=== PATIENT | female | born 1940 | race Caucasian/White ===

== ENCOUNTER → 2018-03-24 12:31 | Outpatient (CLI) | payer MEDICARE, SELFPAY | PROVIDERS: Visit Provider Student in an Organized Health Care Education/Training Program | DX: M85.851 Other specified disorders of bone density and structure, right thigh (principal); E07.9 Disorder of thyroid, unspecified; Z78.0 Asymptomatic menopausal state | CPT/HCPCS: 77080 ==

== ENCOUNTER 2018-07-23 02:06 | Emergency (ER) | payer MEDICARE, OTHER, SELFPAY ==
[2018-07-23 02:15] VITALS: BP 147/96; PULSE 76; RESP 14; TEMP 36.3; O2SAT 97
--- NOTE | 2018-07-23 02:16 | ED.RECABL ---
HPI - Recheck/Abnormal Lab/Rx General Chief Complaint: Recheck/Abnormal Lab/Rx Stated Complaint: dr yuan sent, calcium is low Time Seen by Provider: 07/23/18 02:12 Source: patient and other (Dr. Yuan) Limitations: no limitations History of Present Illness HPI narrative: 78 year old female sent for lab abnormalities. Patient was seen 07/21 but results were called to Dr. Yuan early this morning 07/23. Calcium level of 3.[address] Yuan. Patient was seen in the office for fatigue and sciatica pain. Results were done through [facility] and are not available to us at this time. Patient states that size ET she has been having a lot of other symptoms. She related this to use any weeks at the beginning of the month caregiving for another individual and not getting very much sleep, she also was having a flare of her IBS and is having some diarrhea elects improving. She was not having an excessive amount of frequency is stool. She has not been have any tremors or fasciculations or muscle twitches. She denies any chest pain or shortness of breath. She denies any nausea or vomiting. No new urinary symptoms. She has not had any new medications other than atorvastatin started in the last couple weeks she states that she was told she had low calcium many years ago when she had a bone biopsy. Related Data Home Medications Medication Instructions Recorded Confirmed atorvastatin [Lipitor] 20 mg PO HS #0 02/05/18 levothyroxine 88 mcg PO Q DAY #0 02/05/18 Previous Rx's Medication Instructions Recorded estradiol 0.01% (0.1 mg/gram) 1 gram VAG 2XW #42.5 gram 05/20/18 vaginal cream Allergies Allergy/AdvReac Type Severity Reaction Status Date / Time No Known Drug Allergies Allergy Verified 07/23/18 02:16 Review of Systems Review of Systems All systems reviewed & are unremarkable except as noted in HPI and below Constitutional Reports fatigue Cardiovascular Denies chest pain and Denies dyspnea Respiratory Denies cough and Denies dyspnea Gastrointestinal Gastrointestinal: Denies abdominal pain, Reports diarrhea, Denies nausea and Denies vomiting Musculoskeletal Denies myalgias, Denies muscle cramps, Denies muscle weakness, Denies numbness, Denies tingling and Denies other (Tremors, fasciculations) Neurologic Denies abnormal movements, Denies numbness, Denies restless legs and Denies tingling Endocrine Reports fatigue Exam Narrative Exam Narrative: GENERAL: Alert and oriented x three, well-nourished, well-appearing thin female in no acute distress. HEENT: Head normocephalic, atraumatic, EOMI, pupils reactive, face symmetric, moist mucous membranes NECK: Supple, full range of motion CARDIOVASCULAR: Regular rate and rhythm without murmurs, rubs or gallops. RESPIRATORY: Breath sounds equal bilaterally, no wheezes rales or rhonchi. ABDOMEN: Soft, nontender. Normoactive bowel sounds all 4 quadrants. No guarding or rebound, rigidity, no mass : No CVA tenderness EXTREMITIES: Normal range of motion, no clubbing or edema. 5 in 5 muscle strength in bilateral upper and lower extremities. Neurovascularly intact NEUROLOGICAL: Cranial nerves II through XII grossly intact. Moving all extremities. No tremor noted. No muscle fasciculations. No clonus. SKIN: Warm, dry, no petechiae, no rashes or lesions. Initial Vital Signs Initial Vital Signs: Vital Signs Temperature 97.4 F L 07/23/18 02:15 Pulse Rate 76 07/23/18 02:15 Respiratory Rate 14 07/23/18 02:15 Blood Pressure 147/96 H 07/23/18 02:15 Pulse Oximetry 97 07/23/18 02:15 Course Orders Ordered: ED Orders 07/23/18 02:13 EKG-12 Lead Stat 07/23/18 02:18 Complete Blood Count AUTO DIFF Stat Comprehensive Metabolic Panel Stat Magnesium Stat Phosphorous Stat Thyroid Stimulating Hormone Stat Vital Signs - 8 hr 07/23/18 02:15 Temperature 97.4 F L Pulse Rate 76 Respiratory Rate 14 Blood Pressure 147/96 H Pulse Oximetry 97 [facility] - Recheck/Abnormal Lab/Rx Medical Records Attestation: I reviewed the patient's medical records. Records were sent from patient's last office visit by Dr. Yuan. Lab Data Result diagrams: 07/23/18 02:18 07/23/18 02:18 Lab Results 07/23/18 07/23/18 07/23/18 Range/Units 02:18 02:18 02:18 WBC 4.1 L (4.5-11.0) X10^3/uL RBC 4.62 (4.0-5.2) X10^6/uL Hgb 14.7 (12.0-16.0) g/dL Hct 42.6 (36-46) % MCV 92.3 (80-100) fL MCH 31.8 (26-34) PG MCHC 34.5 (30-36) % RDW 12.3 (11.6-14.8) % Plt Count 239 (150-400) X10^3/uL Neut % (Auto) Not Reportable Lymph % (Auto) Not Reportable [place] % (Auto) Not Reportable Eos % (Auto) Not Reportable Baso % (Auto) Not Reportable Seg Neutrophils % 30.0 L (38-70) % Band Neutrophils % 2.0 L (3-7) % Lymphocytes % (Manual) 42.0 (25-45) % Atypical Lymphs % 13.0 H ( - 0) % Monocytes % (Manual) 8.0 (2-11) % Eosinophils % (Manual) 3.0 (2-4) % Basophils % (Manual) 2.0 H (0-1) % RBC Morphology Normal morphology Sodium 138 (137-145) mmol/L Potassium 4.0 (3.4-5.1) mmol/L Chloride 102 (98-107) mmol/L Carbon Dioxide 27 (22-32) mmol/L BUN 18 H (7-17) mg/dL Creatinine 0.80 (0.52-1.04) mg/dL Estimated GFR > 60.0 (>60) mL/min BUN/Creatinine Ratio 22.5 H (6-22) Glucose 89 (80-110) mg/dL Calcium 9.4 (8.4-10.2) mg/dL Phosphorus 4.0 (2.8-4.1) mg/dL Magnesium 2.2 (1.6-2.3) mg/dL Total Bilirubin 0.3 (0.2-1.3) mg/dL AST 32 (14-36) IU/L ALT 28 (9-52) IU/L Alkaline Phosphatase 75 (38-126) U/L Total Protein 7.7 (6.3-8.2) g/dL Albumin 4.5 (3.5-5.0) g/dL Globulin 3.2 (1.7-4.1) g/dL Albumin/Globulin Ratio 1.4 (1.0-2.8) TSH 7.19 H (0.47-4.68) uIU/mL ECG Data Attestation: I personally reviewed and interpreted this ECG as follows: Interpretation: Sinus rhythm with a rate of 65, P are 178, [place] 105 and QTC of 437. Non specific ST change. MDM Narrative Medical decision making narrative: Labs for recheck him calcium is not low. I did repeat her CBC and TSH as well as there was potential that this may have been another patient's lab work verses just the lab air. After discussion patient did state that when they were drawing her blood eye was quite difficult for them to get blood and the blood was flowing very slowly into the tube so they had to use multiple tubes to try to get enough. Patient was given a copy of her lab work all of her TSH was still pending and she has phone follow-up set up with her provider. Discharge Plan Departure Patient Disposition: Home Clinical Impression: Abnormal laboratory test Discharge Date/Time: 07/23/18 03:12 Activity Restrictions/Additional Instructions: Follow up with your care provider at your next scheduled evaluation. Your labs are appropriate today. Your calcium level is not low on recheck. Thyroid (TSH) is pending. Prescriptions: No Action atorvastatin [Lipitor] 20 MG tablet 20 mg PO HS Qty: 0 RF: 0 levothyroxine 88 MCG tablet 88 mcg PO Q DAY Qty: 0 RF: 0 estradiol 0.01 % (0.1 mg/gram) cream 1 gram VAG 2XW Qty: 42.5 RF: 2 Referrals: Juan J Yuan MD [Primary Care Provider] -
[2018-07-23 02:31] LABS: Hematocrit 42.6 % (36-46); Hemoglobin 14.7 g/dL (12.0-16.0); Mean Corpuscular HGB Conc 34.5 % (30-36); Mean Corpuscular Hemoglobin 31.8 PG (26-34); Mean Corpuscular Volume 92.3 fL (80-100); Platelet Count 239 X10^3/uL (150-400); Red Blood Cell Count 4.62 X10^6/uL (4.0-5.2); Red Cell Distribution Width 12.3 % (11.6-14.8); White Blood Cell Count 4.1 X10^3/uL (4.5-11.0)
[2018-07-23 02:35] LABS: Add Manual Diff / Slide Review YES
[2018-07-23 02:40] LABS: Alanine Aminotransferase 28 IU/L (9-52); Albumin 4.5 g/dL (3.5-5.0); Albumin Globulin Ratio 1.4 (1.0-2.8); Alkaline Phosphatase 75 U/L (38-126); Aspartate Aminotransferase 32 IU/L (14-36); BUN Creatinine Ratio 22.5 (6-22); Bilirubin Total 0.3 mg/dL (0.2-1.3); Blood Urea Nitrogen 18 mg/dL (7-17); Calcium 9.4 mg/dL (8.4-10.2); Carbon Dioxide 27 mmol/L (22-32); Chloride 102 mmol/L (98-107); Estimated Glomerular Filt Rate > 60.0 mL/min (>60); Globulin 3.2 g/dL (1.7-4.1); Glucose 89 mg/dL (80-110); HEMOLYSIS < 15 (0-50); Magnesium 2.2 mg/dL (1.6-2.3); Sodium 138 mmol/L (137-145); Total Protein 7.7 g/dL (6.3-8.2)
[2018-07-23 03:07] LABS: RBC Morphology Normal Morphology
[2018-07-23 03:10] LABS: Thyroid Stimulating Hormone 7.19 uIU/mL (0.47-4.68)
[2018-07-23 03:11] VITALS: BP 118/71; PULSE 63; RESP 14; O2SAT 97
== END 2018-07-23 03:12 | disposition home or self-care (01) ==
PROVIDERS: Emergency Provider Emergency Medicine; PCP Internal Medicine
DX: R79.0 Abnormal level of blood mineral (principal)
CPT/HCPCS: 36591; 80053; 83735; 84100; 84443; 85025; 93005; 99282; 99284

== ENCOUNTER → 2018-10-02 10:12 | Outpatient (CLI) | payer MEDICARE, OTHER, SELFPAY ==
--- NOTE | 2018-10-02 | DI.US.S_ITS ---
PROCEDURE: US CAROTID DOPPLER BI INDICATIONS: TRANSIENT CEREBRAL ISCHEMIC ATTACK, UNSPECIFIED. TECHNIQUE: Color and pulse Doppler interrogation was performed of both carotid systems, with image documentation and velocity measurements. COMPARISON: None. FINDINGS: Stenosis calculations are based on SRU (Society of Radiologists in Ultrasound) criteria. Right side: Brachial blood pressure: 111/71 mm Hg. Common carotid artery peak systolic velocity: 82 cm/sec. Internal carotid artery peak systolic velocity: 99 cm/sec. Internal carotid artery end diastolic velocity: 31 cm/sec. External carotid artery peak systolic velocity: 90 cm/sec. ICA/CCA peak systolic ratio: 1.2. Hoang scale imaging description: Minimal plaque. Percent internal carotid artery stenosis: Less than 50%. Vertebral artery: Flow direction is antegrade. Left side: Brachial blood pressure: 108/64 mm Hg. Common carotid artery peak systolic velocity: 63 cm/sec. Internal carotid artery peak systolic velocity: 91 cm/sec. Internal carotid artery end diastolic velocity: 35 cm/sec. External carotid artery peak systolic velocity: 79 cm/sec. ICA/CCA peak systolic ratio: 1.4. Hoang scale imaging description: Minimal plaque. Percent internal carotid artery stenosis: Less than 50%. Vertebral artery: Flow direction is antegrade. IMPRESSION: Less than 50% bilateral internal carotid artery stenosis. Dictated by: Waylon López A Interpreted: Xavier Mccloud MD on 10/02/2018 at 13:08 Approved by: Xavier Mccloud M.D. on 10/03/2018 at 9:04
== END ==
PROVIDERS: PCP Internal Medicine; Visit Provider Internal Medicine
DX: I65.23 Occlusion and stenosis of bilateral carotid arteries (principal)
CPT/HCPCS: 93880

== ENCOUNTER → 2019-12-28 11:09 | Outpatient (CLI) | payer OTHER, SELFPAY ==
--- NOTE | 2019-12-28 | DI.RAD.S_ITS ---
PROCEDURE: FL BARIUM SWALLOW INDICATIONS: Dysphagia, unspecified COMPARISON: None. FINDINGS: Function: There is decreased esophageal peristalsis and delayed esophageal clearance. No elicited gastroesophageal reflux. Morphology: Air-contrast images demonstrate normal mucosal morphology. Single contrast views show no esophageal strictures, extrinsic mass effects, or diverticula. Limited images of the stomach demonstrate normal appearance. IMPRESSION: Esophageal dysmotility Dictated by: Babar Delgado M.D. on 12/28/2019 at 16:36 Approved by: Babar Delgado M.D. on 12/28/2019 at 16:38
== END ==
PROVIDERS: PCP Internal Medicine; Referring Provider Internal Medicine; Visit Provider Student in an Organized Health Care Education/Training Program
DX: R13.10 Dysphagia, unspecified (principal); K22.4 Dyskinesia of esophagus
CPT/HCPCS: 74220

== ENCOUNTER → 2020-05-02 18:20 | Outpatient (ROUT) | payer OTHER, SELFPAY ==
[2020-05-02 18:45] LABS: BUN Creatinine Ratio 20.8 (6-22); Blood Urea Nitrogen 15 mg/dL (7-17); Calcium 9.4 mg/dL (8.4-10.2); Carbon Dioxide 25 mmol/L (22-32); Chloride 105 mmol/L (98-107); Estimated Glomerular Filt Rate > 60.0 mL/min (>60); Glucose 69 mg/dL (80-110); HEMOLYSIS < 15 (0-50); Potassium 4.3 mmol/L (3.4-5.1); Sodium 138 mmol/L (137-145)
[2020-05-02 18:46] LABS: Add Manual Diff / Slide Review NO; Basophils Absolute Auto 100 /uL (0-100); Basophils Percent Auto 1.8 % (0-2); Eosinophils Absolute Auto 100 /uL (0-450); Eosinophils Percent Auto 2.1 % (2-4); Hematocrit 42.7 % (36-46); Hemoglobin 14.1 g/dL (12.0-16.0); Lymphocytes Absolute Auto 1400 /uL (1100-4500); Lymphocytes Percent Auto 26.1 % (25-40); Mean Corpuscular Hemoglobin 31.4 PG (26-34); Mean Corpuscular Volume 95.1 fL (80-100); Monocytes Absolute Auto 600 /uL (0-900); Monocytes Percent Auto 11.1 % (3-14); Neutrophils Absolute Auto 3200 /uL (1500-7000); Neutrophils Percent Auto 58.9 % (50-75); Platelet Count 221 X10^3/uL (150-400); Red Blood Cell Count 4.49 X10^6/uL (4.0-5.2); Red Cell Distribution Width 12.7 % (11.6-14.8); White Blood Cell Count 5.4 X10^3/uL (4.5-11.0)
== END ==
PROVIDERS: PCP Internal Medicine; Visit Provider Student in an Organized Health Care Education/Training Program
DX: R19.7 Diarrhea, unspecified (principal)
CPT/HCPCS: 80048; 85025

== ENCOUNTER → 2020-05-03 16:03 | Outpatient (CLI) | payer OTHER, SELFPAY | PROVIDERS: PCP Internal Medicine; Referring Provider Student in an Organized Health Care Education/Training Program; Visit Provider Student in an Organized Health Care Education/Training Program | DX: R19.7 Diarrhea, unspecified (principal) | CPT/HCPCS: 87177 ==

== ENCOUNTER → 2020-05-10 13:24 | Outpatient (CLI) | payer OTHER, SELFPAY ==
[2020-05-10 14:44] LABS: Clostridium Difficile Tox PCR Negative for C. diff
== END ==
PROVIDERS: PCP Internal Medicine; Referring Provider Student in an Organized Health Care Education/Training Program; Visit Provider Student in an Organized Health Care Education/Training Program
DX: R19.7 Diarrhea, unspecified (principal)
CPT/HCPCS: 87045; 87493; 87899

== ENCOUNTER 2020-08-03 18:52 | Emergency (ER) | payer OTHER, SELFPAY ==
[2020-08-03] VITALS (19 sets, daily range): BP systolic 106–147; BP diastolic 58–87; PULSE 64–81; RESP 13–25; TEMP 36.7; O2SAT 97–100
--- NOTE | 2020-08-03 18:55 | DI.RAD.S_ITS ---
PROCEDURE: XR WRIST LT MIN 3V INDICATIONS: fall TECHNIQUE: 3 views of the wrist were acquired. COMPARISON: None. FINDINGS: Bones: There is a comminuted transverse fracture of the distal radius extending to the radiocarpal and distal radioulnar joints. There is dorsal displacement of the dominant distal component. There is also mildly displaced ulnar styloid fracture. Soft tissues: There is extensive periarticular soft tissue swelling. IMPRESSION: 1. Comminuted fracture of the distal radius with articular extension and dorsal displacement. 2. Mildly displaced ulnar styloid fracture. Dictated by: Hemanth Mendoza M.D. on 08/03/2020 at 19:23 Approved by: Hemanth Mendoza M.D. on 08/03/2020 at 19:24
--- NOTE | 2020-08-03 19:09 | ED_ITS ---
HPI - General Adult General Chief complaint: Extremity Injury, Upper Stated complaint: lt wrist injury Time Seen by Provider: 08/03/20 18:55 Source: patient Mode of arrival: Ambulatory Limitations: no limitations History of Present Illness HPI narrative: 80-year-old female not on anticoagulation here for evaluation of left wrist injury. Patient states that prior to arrival she slipped in her kitchen. Landing on her left wrist. [place] a crunch in a crack. Has obvious deformity. Iced the area and came into the emergency department. No other injuries reported from the event. She did not hit her head. Related Data Home Medications Medication Instructions Recorded Confirmed atorvastatin [Lipitor] 20 mg PO HS #0 02/05/18 levothyroxine 88 mcg PO Q DAY #0 02/05/18 aspirin 81 mg tablet,delayed 81 mg PO DAILY 06/24/19 06/24/19 release calcium carb,cit ER 600 mg tab PO 06/24/19 06/24/19 calcium-vit D3 500 unit tablet,ext.release Previous Rx's Medication Instructions Recorded estradiol 1 gram VAGINAL 2XW #42.5 gram 07/14/19 hydrocodone-acetaminophen [[place]] 1 tab PO Q4-6H PRN #14 tab 08/03/20 Allergies Allergy/AdvReac Type Severity Reaction Status Date / Time No Known Drug Allergies Allergy Verified 06/24/19 15:30 Review of Systems Constitutional Constitutional: Denies fever(s) and Denies headache(s) ENT Ears, Nose, Mouth, and Throat: Denies headache(s) Cardiovascular Cardiovascular: Denies chest pain and Denies dyspnea Respiratory Respiratory: Denies dyspnea Musculoskeletal Musculoskeletal: Denies tingling Comments: Left wrist injury Integumentary/Breasts Skin/Breast: Denies lesions and Denies rash Neurologic Neurologic: Denies headache(s) and Denies tingling Hematologic/Lymphatic Hematologic/Lymphatic: Denies easy bleeding and Denies easy bruising Allergic/Immunologic Allergic/Immunologic: Denies urticaria Patient History Medical History Hypothyroid (Acute) Social History marital status: Exam Initial Vital Signs Initial Vital Signs: Vital Signs Temperature 98.1 F 08/03/20 18:55 Pulse Rate 81 10/14/20 18:55 Respiratory Rate 18 08/03/20 18:55 Blood Pressure 135/81 08/03/20 18:55 Pulse Oximetry 99 08/03/20 18:55 Const General: cooperative and comfortable Limitations: mental status not altered HENMT Head: normal to inspection and normocephalic Resp Effort & Inspection: normal respiratory effort Auscultation: clear to auscultation bilaterally Cardio Rate: regular rate Rhythm: regular rhythm Skin Lesions: no lesions Rashes: no rashes Neuro Sensory Exam: no sensory deficits noted Extrem General: capillary refill normal Other: Left shoulder left elbow unremarkable. Has a obvious deformity to left wrist. Psych Appearance: grossly normal and well kempt Procedures Orthopedic Fracture Reduction Fracture #1: Time Out Performed: Yes Side: left Fracture Reduction Location: radius and ulna Analgesia: procedural sedation Technique: direct manipulation and traction/counter-traction Post Reduction X-rays Demonstrate: acceptable reduction Post-reduction neuro exam: intact Post-reduction vascular exam: intact Splint Applied: Yes Patient Tolerated Procedure: Well and No complications Orthopedic Splinting/Casting Injury #1: Side: left Upper Extremity Injury Location: forearm Upper Extremity Immobilizer: sugar tong splint Post splinting neuro exam: intact Post splinting vascular exam: intact Placed by: Provider Procedural Sedation Consent signed: Yes Indication: fracture/dislocation reduction ASA Class: II Mallampati Airway Classification: Class I Preparation: monitor tech applied, pulse oximeter, capnometry used and supplemental O2 applied Fentanyl: IV Fentanyl dose (mcg): 50 IV Propofol dose (mg): 100 ED Sedation Level: Moderate (Concious) Patient Tolerated Procedure: Well and No complications Complications: none Scores GCS Liyah coma scale eye opening: Spontaneous Liyah coma scale verbal response: Orientated Liyah coma scale motor response: Obey commands Liyah coma scale total score: 15 Course Orders Ordered: ED Orders 08/03/20 18:55 XR wrist LT min 3V Stat 08/03/20 20:05 XR wrist LT min 3V Stat Discontinued Medications Hydrocodone Bitart/Acetaminophen ([place] 5/325) 1 tab PO NOW ONE Stop: 08/03/20 20:32 Last Admin: 08/03/20 20:39 Dose: 1 tab Documented by: WALTER Hydrocodone Bitart/Acetaminophen (Vicodin 5/325 Prepack) 1 bottle MISC SEEINSTR ONE Stop: 08/03/20 20:32 Last Admin: 08/03/20 20:39 Dose: 1 bottle Documented by: WALTER Fentanyl (Sublimaze) 50 mcg IV NOW ONE Stop: 08/03/20 19:13 Last Admin: 08/03/20 19:45 Dose: 50 mcg Documented by: WALTER Propofol (Diprivan) 100 mg IV NOW ONE Stop: 08/03/20 19:13 Last Admin: 08/03/20 19:52 Dose: 100 mg Documented by: WALTER Vital Signs Vital signs: Vital Signs - 8 hr 08/03/20 18:55 08/03/20 19:32 08/03/20 19:33 Temperature 98.1 F Pulse Rate 81 75 Respiratory Rate 18 Blood Pressure 135/81 139/70 Pulse Oximetry 99 100 08/03/20 19:35 08/03/20 19:40 08/03/20 19:45 Temperature Pulse Rate 75 72 77 Respiratory Rate 20 25 H 16 Blood Pressure 130/68 129/69 Pulse Oximetry 100 100 100 08/03/20 19:50 08/03/20 19:52 08/03/20 19:55 Temperature Pulse Rate 80 77 77 Respiratory Rate 14 16 21 Blood Pressure 129/67 147/73 H Pulse Oximetry 100 99 08/03/20 20:00 08/03/20 20:05 08/03/20 20:10 Temperature Pulse Rate 71 69 67 Respiratory Rate 15 13 14 Blood Pressure 124/60 106/59 L 108/58 L Pulse Oximetry 98 99 99 08/03/20 20:15 08/03/20 20:21 08/03/20 20:25 Temperature Pulse Rate 68 72 67 Respiratory Rate 19 14 Blood Pressure 107/63 109/87 123/62 Pulse Oximetry 99 97 98 08/03/20 20:30 08/03/20 20:35 Temperature Pulse Rate 66 67 Respiratory Rate Blood Pressure 123/67 121/69 Pulse Oximetry 98 97 Medical Decision Making Imaging Data Extremity x-ray #1: Radiologist's Impression: [address] [address] XRay Report Signed Patient: Janett Lin [facility]#: [id number] : 1940Acct:[id number] Age/Sex: 80 / FDate of Service: 08/03/20 Loc: ED Accession Number: [id number] Procedure: XR wrist LT min 3V Ordering Provider: Ru De Leon PROCEDURE: XR WRIST LT MIN 3V INDICATIONS: fall TECHNIQUE: 3 views of the wrist were acquired. COMPARISON: None. FINDINGS: Bones: There is a comminuted transverse fracture of the distal radius extending to the radiocarpal and distal radioulnar joints. There is dorsal displacement of the dominant distal component. There is also mildly displaced ulnar styloid fracture. Soft tissues: There is extensive periarticular soft tissue swelling. IMPRESSION: 1. Comminuted fracture of the distal radius with articular extension and dorsal displacement. 2. Mildly displaced ulnar styloid fracture. Dictated by: Hemanth Mendoza M.D. on 08/03/2020 at 19:23 Approved by: Hemanth Mendoza M.D. on 08/03/2020 at 19:24 Extremity x-ray #2: Radiologist's Impression: [address] [address] XRay Report Signed Patient: Janett Lin [facility]#: [id number] : 1940Acct:[id number] Age/Sex: 80 / FDate of Service: 08/03/20 Loc: ED Accession Number: [id number] Procedure: XR wrist LT min 3V Ordering Provider: Brian Littlejohn D.O. PROCEDURE: XR WRIST LT MIN 3V INDICATIONS: post reduction TECHNIQUE: 3 views of the wrist were acquired. COMPARISON: [facility], XR WRIST LT MIN 3V, 08/03/2020, 18:58. FINDINGS: Bones: There is improved alignment status post closed reduction of a comminuted distal radius fracture with decreased volar displacement. Fracture extension to the radiocarpal and distal radioulnar joints redemonstrated. A mildly displaced ulnar styloid fracture is also again noted. Soft tissues: There is an external cast which limits evaluation of the soft tissues. IMPRESSION: 1. Improved alignment status post closed reduction of comminuted intra-articular distal radius fracture Dictated by: Hemanth Mendoza M.D. on 08/03/2020 at 20:43 Approved by: Hemanth Mendoza M.D. on 08/03/2020 at 20:45 [facility] Narrative Medical decision making narrative: Patient with ulnar styloid fracture and distal radius fracture. Patient was sedated as described above. Fracture was reduced and splint applied. Discussed the case with Dr. Brunson with orthopedics he states that he was in an acceptable reduction for this evening and that the patient can follow-up with him in the clinic. Patient was given care instructions and return precautions. She expressed understanding and agreement. Discharge Plan Departure Patient Disposition: Home Clinical Impression: Fracture of ulnar styloid Qualifiers: Encounter type: initial encounter Fracture type: closed Fracture alignment: displaced Laterality: left Qualified Code(s): S52.612A - Displaced fracture of left ulna styloid process, initial encounter for closed fracture Distal radius fracture, left Qualifiers: Encounter type: initial encounter Fracture type: closed Fracture morphology: unspecified fracture morphology Qualified Code(s): S52.502A - Unspecified fracture of the lower end of left radius, initial encounter for closed fracture Instructions: DI for Wrist Fracture, How to Take Care of Your Splint Activity Restrictions/Additional Instructions: Recommend that tomorrow you contact the [facility] group at [phone]. They would like to see you in the office to discuss further treatment of the wrist fracture. This splint that is in place needs to be treated like a cast. You need to keep it on and keep it clean and keep it dry. Use the sling as needed. Take the pain medication as needed as well. Return to the emergency department for any new or worsening symptoms. Also recommend you contact your primary provider for follow-up. Prescriptions: New hydrocodone-acetaminophen [[place]] 5-325 mg tablet 1 tab PO Q4-6H PRN (Reason: pain) Qty: 14 RF: 0 No Action atorvastatin [Lipitor] 20 MG tablet 20 mg PO HS Qty: 0 RF: 0 levothyroxine 88 MCG tablet 88 mcg PO Q DAY Qty: 0 RF: 0 estradiol 0.01 % (0.1 mg/gram) cream 1 gram vaginal 2XW Qty: 42.5 RF: 3 aspirin 81 mg tablet,delayed release (DR/EC) 81 mg PO DAILY RF: 0 calcium carb and citrate-vitD3 [Citracal-D3 Slow Release] 600 mg calcium- 500 unit tablet extended release PO RF: 0 Referrals: Juan J Chaudhary MD [Primary Care Provider] -
[2020-08-03] MEDS: fentaNYL 100 MCG/2 ML INJ 50 MCG IV (19:45)
[2020-08-03] MEDS: propofoL 200 MG/20 ML VIAL 100 MG IV (19:52)
--- NOTE | 2020-08-03 20:05 | DI.RAD.S_ITS ---
PROCEDURE: XR WRIST LT MIN 3V INDICATIONS: post reduction TECHNIQUE: 3 views of the wrist were acquired. COMPARISON: [facility], CR, XR WRIST LT MIN 3V, 08/03/2020, 18:58. FINDINGS: Bones: There is improved alignment status post closed reduction of a comminuted distal radius fracture with decreased volar displacement. Fracture extension to the radiocarpal and distal radioulnar joints redemonstrated. A mildly displaced ulnar styloid fracture is also again noted. Soft tissues: There is an external cast which limits evaluation of the soft tissues. IMPRESSION: 1. Improved alignment status post closed reduction of comminuted intra-articular distal radius fracture Dictated by: Hemanth Mendoza M.D. on 08/03/2020 at 20:43 Approved by: Hemanth Mendoza M.D. on 08/03/2020 at 20:45
--- NOTE | 2020-08-03 20:24 | PC.NURSE ---
Procedural sedation began at 1951. Time out done. Myself, Jerrod RN, Dr. Littlejohn, and Barbie, RT in the room. Pt on 3L O2 via NC. Pt tolerated procedure well. Was able to maintain airway on her own. Splinted by at 1957 and alignment verified by and Xrlorenzo. Pt off O2 and on RA at 2001. Pt is now alert and talking, satting 98% on RA. now back at bedside.
[2020-08-03] MEDS: HYDROCODONE/ACET 5/325 TABLET 1 TAB PO (20:39)
[2020-08-03] MEDS: HYDROCODONE/ACET 5/325 PREPACK 1 BOTTLE MISC (20:39)
== END 2020-08-03 21:05 | disposition home or self-care (01) ==
PROVIDERS: Emergency Provider Emergency Medicine; PCP Internal Medicine
DX: S52.612A Displaced fracture of left ulna styloid process, initial encounter for closed fracture (principal); S52.502A Unspecified fracture of the lower end of left radius, initial encounter for closed fracture; W01.0XXA Fall on same level from slipping, tripping and stumbling without subsequent striking against object, initial encounter
CPT/HCPCS: 25605; 29105; 73110; 94770; 99152; 99284; 99285; J2704; J3010

== ENCOUNTER → 2020-08-04 14:19 | Outpatient (CLI) | payer OTHER, SELFPAY ==
[2020-08-04 15:25] LABS: Add Manual Diff / Slide Review NO; Basophils Absolute Auto 100 /uL (0-100); Basophils Percent Auto 1.6 % (0-2); Eosinophils Absolute Auto 100 /uL (0-450); Eosinophils Percent Auto 2.5 % (2-4); Hematocrit 38.9 % (36-46); Lymphocytes Absolute Auto 1800 /uL (1100-4500); Mean Corpuscular HGB Conc 33.3 % (30-36); Mean Corpuscular Hemoglobin 31.4 PG (26-34); Mean Corpuscular Volume 94.3 fL (80-100); Monocytes Absolute Auto 800 /uL (0-900); Monocytes Percent Auto 13.1 % (3-14); Neutrophils Absolute Auto 3100 /uL (1500-7000); Neutrophils Percent Auto 51.8 % (50-75); Platelet Count 208 X10^3/uL (150-400); Red Blood Cell Count 4.13 X10^6/uL (4.0-5.2); Red Cell Distribution Width 12.2 % (11.6-14.8); White Blood Cell Count 5.9 X10^3/uL (4.5-11.0)
[2020-08-04 15:46] LABS: Alanine Aminotransferase 19 IU/L (<35); Albumin 4.1 g/dL (3.5-5.0); Albumin Globulin Ratio 1.5 (1.0-2.8); Alkaline Phosphatase 66 U/L (38-126); Aspartate Aminotransferase 31 IU/L (14-36); BUN Creatinine Ratio 29.9 (6-22); Bilirubin Total 0.4 mg/dL (0.2-1.3); Blood Urea Nitrogen 20 mg/dL (7-17); Calcium 9.2 mg/dL (8.4-10.2); Carbon Dioxide 31 mmol/L (22-32); Chloride 106 mmol/L (98-107); Cholesterol 152 mg/dL (140-199); Estimated Glomerular Filt Rate > 60.0 mL/min (>60); Globulin 2.7 g/dL (1.7-4.1); Glucose 121 mg/dL (80-110); HDL Cholesterol 84 mg/dL (40-60); HEMOLYSIS < 15 (0-50); LDL Cholesterol Calculated 54 mg/dL (<100); Potassium 4.8 mmol/L (3.4-5.1); Sodium 138 mmol/L (137-145); Total Protein 6.8 g/dL (6.3-8.2); Triglycerides 70 mg/dL (35-150)
== END ==
PROVIDERS: PCP Internal Medicine; Referring Provider Internal Medicine; Visit Provider Orthopaedic Surgery
DX: Z01.818 Encounter for other preprocedural examination (principal); Z01.812 Encounter for preprocedural laboratory examination; Z00.00 Encounter for general adult medical examination without abnormal findings; E78.5 Hyperlipidemia, unspecified; E03.9 Hypothyroidism, unspecified
CPT/HCPCS: 36415; 80053; 80061; 85025; 93005

== ENCOUNTER → 2020-08-06 13:14 | Outpatient (CLI) | payer OTHER, SELFPAY ==
[2020-08-08 06:03] LABS: COVID19 Sendout Not Detected (Not Detect)
== END ==
PROVIDERS: PCP Internal Medicine; Visit Provider Physician Assistant
DX: Z01.812 Encounter for preprocedural laboratory examination (principal)
CPT/HCPCS: 87635

== ENCOUNTER 2020-08-09 12:30 | Day surgery (SDC) | payer OTHER, SELFPAY ==
[2020-08-08 12:05] VITALS: BMI 21.7
[2020-08-09] VITALS (8 sets, daily range): BP systolic 92–116; BP diastolic 47–72; PULSE 69–77; RESP 11–15; TEMP 36.6–36.8; O2SAT 97–99; BMI 21.4
--- NOTE | 2020-08-09 | DI.RAD.S_ITS ---
PROCEDURE: XR WRIST LT 2V INDICATIONS: FX REPAIR TECHNIQUE: 2 views of the wrist were acquired. COMPARISON: [facility], CR, XR WRIST LT MIN 3V, 08/03/2020, 19:47. [facility], CR, XR WRIST LT MIN 3V, 08/03/2020, 18:58. FINDINGS: Bones: No previously on identified fractures or dislocations. No suspicious bony lesions. Note is made of virtual anatomic alignment established across the distal radius fracture planes after ORIF. Scaphoid view: Not obtained Soft tissues: No suspicious soft tissue calcifications. IMPRESSION: Excellent anatomic alignment established after ORIF at distal radius complex fracture. Dictated by: Michael Macias M.D. on 08/09/2020 at 17:03 Approved by: Michael Macias M.D. on 08/09/2020 at 17:04
[2020-08-09] MEDS: ACETAMINOPHEN 325 MG TABLET 975 MG PO (13:01)
[2020-08-09] MEDS: LACTATED RINGERS 1,000 ML 42 ML IV (13:04)
--- NOTE | 2020-08-09 14:53 | PM.PREOP ---
Pre-operative Note COVID-19 COVID-19 status: Negative Result date/Date tested (Pos, Neg/Pending): 08/06/20 Interval Note History & Physical reviewed/Exam performed by Physician: Yes Changes to H&P: No
--- NOTE | 2020-08-09 14:56 | P.OP_ITS ---
Operative Date/Time/Diagnoses Date of procedure: 08/09/20 Time of procedure: 16:19 Pre-op diagnosis: Left distal radius fracture Post-op diagnosis: same Procedure & Clinicians Procedure: ORIF of left distal radius fracture Same procedure as scheduled: Yes Indications: [age] year old female with a displaced left distal radius fracture. It is felt that she would benefit from operative reduction and stabilization. Risks and benefits of surgery were discussed and appropriate consents were obtained. Surgeon: Mahesh Brunson Click Yes if Unassisted: Yes Anesthesia Type: Peripheral nerve block Operative Notes Findings: None Closure Type: primary Specimen(s): none sent Prosthetic devices, grafts, tissues, transplants, or devices: [employer] DVR Estimated Blood Loss (mL): 2 Tourniquet time (min): 26 Procedure in detail: The patient was brought to the operating room and intubated on the table. Time-out was performed. Attention was turned towards the well- marked left wrist. Preoperative antibiotics were given. The arm was prepped and draped in the standard sterile fashion. An Esmarch was used to exsanguinate the limb and the tourniquet was inflated. A 8 cm incision was made along the FCR course curving radially distally across the wrist crease. We sharply dissected through the FCR tendon sheath and retracted the tendon and then came down to the quadratus. This was elevated off the distal radius. The fracture was exposed and cleaned up with a curette. We then reduced the fracture and confirmed under x-ray. We then took a [employer] volar plate. It was placed against the bone and x-ray was taken to confirm positioning. One screw was placed through the shaft in the variable hole. This was checked under x-ray and tightened down. We then placed distal row pegs and proximal row screws in the distal fragment. We started along the ulnar column and then finished out in the styloid. We then went back and placed the final shaft screws. The wrist was stressed and shucked under xray to make sure it was stable. Final x-rays were taken. The wound was irrigated. The superficial skin were closed. The patient was placed in a well-padded volar splint. They are extubated and brought to recovery with no complications. Complications: none Post-operative Condition: stable Disposition: PACU Plan for aftercare: Outpatient. Change to a removable splint and start OT after 1st postoperative visit.
[2020-08-09] MEDS: CEFAZOLIN 1 GM/50 ML FROZ.PIGGY IV (15:17)
--- NOTE | 2020-08-09 15:42 | SUR.OPER ---
Supine on padded OR bed, head on pillow, left arm on arm table under control of surgeon, right arm secured on padded arm boards at <90 degrees abduction, legs uncrossed, safety belt at thigh, tape over blanket over lower legs.
[2020-08-09] MEDS: LIDOCAINE 1% W/EPI 20 ML INJ (15:48)
[2020-08-09] MEDS: SODIUM CHLORIDE 0.9% 1,000 ML, GENTAMICIN 80 MG IRR (16:10)
--- NOTE | 2020-08-09 16:33 | SUR.PHASEI ---
No sensation to left hand. Unable to wiggle fingers. Cap refill < 2 seconds. Patient denies pain. Tolerating po.
--- NOTE | 2020-08-09 17:32 | SUR.PHASEII ---
1700 late entry - anxious to go home, denies pain/nausea. VSS. Assisted patient with dressing, sling onto left arm. Stable for discharge.
== END 2020-08-09 17:19 | disposition home or self-care (01) ==
PROVIDERS: PCP Internal Medicine; Referring Provider Orthopaedic Surgery; Visit Provider Orthopaedic Surgery
PROC: (CPT 25574; principal; 2020-08-09 14:00)
DX: S52.592A Other fractures of lower end of left radius, initial encounter for closed fracture (principal); S52.602A Unspecified fracture of lower end of left ulna, initial encounter for closed fracture; W01.0XXA Fall on same level from slipping, tripping and stumbling without subsequent striking against object, initial encounter; M19.90 Unspecified osteoarthritis, unspecified site
CPT/HCPCS: 25574; 73100; 76000; J2704; J3010

== ENCOUNTER → 2020-09-07 12:24 | Outpatient (CLI) | payer OTHER, SELFPAY | PROVIDERS: PCP Internal Medicine; Referring Provider Student in an Organized Health Care Education/Training Program; Visit Provider Student in an Organized Health Care Education/Training Program | DX: M85.852 Other specified disorders of bone density and structure, left thigh (principal); Z78.0 Asymptomatic menopausal state | CPT/HCPCS: 77080 ==

== ENCOUNTER → 2022-02-06 14:04 | Outpatient (CLI) | payer OTHER, SELFPAY | PROVIDERS: PCP Internal Medicine; Referring Provider Internal Medicine; Visit Provider Internal Medicine ==

== ENCOUNTER → 2022-02-19 11:23 | Outpatient (CLI) | payer OTHER, SELFPAY ==
--- NOTE | 2022-02-19 | DI.RAD.S_ITS ---
PROCEDURE: [place] BARIUM SWALLOW W SPEECH INDICATIONS: Dyskinesia of esophagus COMPARISON: TECHNIQUE: Examination was conducted in conjunction with speech pathology per standard protocol. In the lateral projection, filming was performed of the patient swallowing. AP projection filming may also be performed with patient swallowing. COMPARISON: [facility], , [place] BARIUM SWALLOW, 12/28/2019, 10:47. FINDINGS: Function: The oral preparatory phase appears normal, with proper containment. There is vallecular and piriform sinus pooling throughout the exam. Laryngotracheal penetration is seen. No aspiration. There is esophageal dysmotility. The barium tablet passes briskly through the esophagus. Morphology: No cricopharyngeal bar is identified. No cervical esophageal webs. No Zenker's diverticulum. No strictures. IMPRESSION: Vallecular and piriform sinus pooling. Laryngotracheal penetration is seen. No aspiration. Esophageal dysmotility. Please see separately dictated speech pathologist's report. Dictated by: Maynor Bean M.D. on 02/19/2022 at 13:57 Approved by: Maynor Bean M.D. on 02/19/2022 at 14:00
--- NOTE | 2022-02-19 15:24 | ST.SWALLOW ---
Visit Care Team Role Provider Type Joseline Mendoza PA-C Attending Provider Non-Staff Primary Care Provider Referring Provider Specialty: Internal Medicine Address: [address] [place] [address], [id number] Email: [email or web address] Modified Barium Swallow Study [employer] Modified Barium Swallow Study Start: 02/19/22 14:49 Freq: Status: Active Protocol: Document 02/19/22 14:49 ZS (Rec: 02/19/22 15:23 ZS [id number]) Modified Barium Swallow Study Total Time Visit Start Time 12:00 Visit Stop Time 12:30 Total Visit Minutes [address] Joseline Mendoza Reason for Referral MBS recommended following swallow screen on 02/06/2022 Setting Setting Outpatient Care Patient Information Identification Type Name Patient History Janett is an 81-year-old female with a history of atrial fibrillation, IBS, and hyperlipidemia. She had a barium swallow study on 2019 and was found to have esophageal dysmotility. Janett participated in a swallow screen on 02/06/2022 at [facility] and was recommended to complete a modified barium swallow study. At the swallow screen, Janett reported concerns with a raspy voice and dry throat that became worse through the day and which she treats with a humidifier in her home. Janett also reported difficulty taking small pills, stating she chokes on them. Subjective Observations Janett reported difficulty swallowing small pills, stating she chokes on them. She reported no difficulty drinking liquid, but stated that she does sometimes cough and choke on bites of food. Janett stated she coughs when she takes several bites/sips in one sitting and it feels like her throat is constricting. She manages this by taking breaks while eating and stated that this helps reduce the feeling of constriction in her throat. Janett stated she has been using cinnamon altoids after meals to help clear the phlegm feeling, as was recommended at her swallow screening and it has been helping. Patient Positioning Position View Lat-A/P Imaging Lateral View Textures Administered Trials Presented Thin Liquid via Cup,[place] Liquid via Cup,Regular Textures Oral Phase Source: MBSIMP (TM) (C) Bolus Specific Scoring Grid Lip Closure No Impairment (WNL) Tongue Control During Bolus Hold Mild Impairment Bolus Prep/Mastication No Impairment (WNL) Bolus Transport/Lingual Motion No Impairment (WNL) A/P Lingual Propulsion Delay No Oral Residue Moderate Impairment Residue Clearing Mild Impairment Nasal Regurgitation No Additional Oral Phase Observations Janett exhibited no anterior loss of bolus, timely and efficient mastication, and brisk lingual propulsion of bolus. Initial trial of thin liquid showed no loss of bolus during tongue hold, however, subsequent trials had mild loss of bolus to the valleculea . Pt exhibited moderate oral residue, which she cleared spontaneously with a second swallow. Pharyngeal Phase Source: MBSIMP (TM) (C) Bolus Specific Scoring Grid Delayed Initiation of Pharyngeal Swallow Yes: bolus on posterior laryngeal surface of epiglottis Soft Palate Elevation No Impairment (WNL) Tongue Base Strength/Range of Motion Minimal Impairment Residue Along the Tongue Base Yes Clearance of Residue Along Tongue Base No Impairment (WNL) Laryngeal Elevation Mild Impairment Anterior Hyoid Movement Mild Impairment Epiglottic Range of Motion No Impairment (WNL) Vallecular Residue Yes Clearance of Vallecular Residue Moderate Impairment Laryngeal Vestibular Closure Mild Impairment Pharyngeal Stripping Wave Minimal Impairment Pharyngeal Contraction No Impairment (WNL) Posterior Pharyngeal Wall Residue No Upper Esophageal Sphincter Opening Moderate Impairment Residue in the Pyriform Sinuses Yes Clearance of Residue in the Pyriform No Impairment (WNL) Sinuses Esophageal Clearance Upright Position Moderate Impairment Additional Pharyngeal Phase Observations Janett exhibited a delayed initiation of swallow, with the bolus head at the posterior laryngeal surface of the epiglottis. Additionally, she exhibited reduced laryngeal vestibular closure and reduced anterior hyoid excursion, both of which contribute to airway protection. Following all swallows, Janett exhibited moderate residue in her pyriforms and valleculea. She spontaneously cleared all residue from the pyriforms and some residue from her valleculea with a second swallow, however, pooling was still evident in her valleculea. Two instances of penetration were observed (PAS 2 and 5), and Janett coughed with both instances. A/P View Textures Administered Trials Presented Thin Liquid via Cup,Barium Tablet A/P View Observations Pharyngeal Contraction No Impairment (WNL) Vocal Fold Function Good Residue Observed Valleculae Right,Valleculae Left Esophageal Function Slowed Clearing,Poor Motility Esophageal Clearance Upright Position Moderate Impairment Additional Observations Janett has known esophageal dysmotility identified in 2019. She exhibited good clearance of the barium tablet , though had moderate retention of barium from previous PO trials in her esophagus. Backflow observed, but remained below the UES. Clinical Impressions Dysphagia Type Pharyngeal dysphagia Findings Janett presents with pharyngeal phase dysphagia characterized by impaired airway protection and pharyngeal residue. Reduced laryngeal elevation, anterior hyoid excursion, and laryngeal vestibular closure negatively impact Janett's ability to protect her airway. Pooling in the pyriforms and valleculea increase risk for aspiration, though Janett is able to clear residue from pyriforms with a second swallow. She exhibits independent use of double swallow, alternating between liquids and solids, and frequent rest breaks as compensatory strategies. Janett would benefit from speech therapy to increase airway protection for improved swallow safety. Rehabilitation Potential Excellent Patient Appropriate for Therapy Yes Recommendations Diet Liquids Order Thin Diet Order Regular Medication Recommendation As Tolerated Aspiration Precautions Recommended Precautions Upright at 90 Degrees,Frequent Rest Periods,Small Bites/Sips ,Chin Tuck,Effortful Swallow, Double Swallow Treatment Plan Therapy Recommendations Outpatient Speech Therapy Compensatory Strategies Recommendations Sitting Upright (90 deg),Chin Tuck,Double Swallow,Small Bites and Sips
== END ==
PROVIDERS: PCP Student in an Organized Health Care Education/Training Program; Referring Provider Student in an Organized Health Care Education/Training Program; Visit Provider Student in an Organized Health Care Education/Training Program
DX: K22.4 Dyskinesia of esophagus (principal)
CPT/HCPCS: 74230; 92611

== ENCOUNTER → 2022-06-05 09:29 | Outpatient (CLI) | payer OTHER, SELFPAY ==
--- NOTE | 2022-06-05 | DI.MG.S_ITS ---
BILATERAL DIGITAL DIAGNOSTIC MAMMOGRAM 3D/2D: 06/05/2022 CLINICAL: Baseline.Left breast pain. No prior exams were available for comparison. The tissue of both breasts is predominantly fatty. There is a benign calcification in the left breast. There also are benign vascular calcifications in both breasts. No significant masses, calcifications, or other findings are seen in either breast. IMPRESSION: INCOMPLETE: NEEDS ADDITIONAL IMAGING EVALUATION There is no abnormality in the left breast to explain left axillary pain. Ultrasound is recommended. Ultrasound will be performed separately. Based on the Tyrer Cuzick model (a risk assessment model) the patient's lifetime risk is 0.4% and her 10 year risk is 0.0%. According to the ACR, ACS, and NCCN guidelines, an annual breast MRI exam along with mammogram is recommended if the patient's lifetime risk is 20% or greater. This exam was interpreted at Station ID: [id number]. NOTE: For mammograms, a report in lay terms will be sent to the patient. Approximately 15% of breast malignancies will not be visualized mammographically. In the management of a palpable breast mass, a negative mammogram must not discourage biopsy of a clinically suspicious lesion. Electronically Signed By: Ralf Rogers acr/:06/05/2022 11:30:32 ACR BI-RADS Category 0: Incomplete [id number]
--- NOTE | 2022-06-05 | DI.US.S_ITS ---
ULTRASOUND OF LEFT BREAST: 06/05/2022 CLINICAL: Focal left breast pain extending from ax tail into axilla. Comparison is made to exam dated: 06/05/2022 mammogram - [facility]. Color flow and Doppler ultrasound of the left breast were performed. IMPRESSION: NEGATIVE There is no sonographic evidence of malignancy. There is no abnormality seen in the left breast to correspond with the pain in the axilla, however, clinical correlation and clinical followup are recommended. A 1 year screening mammogram is recommended. This exam was interpreted at Station ID: [id number]. Electronically Signed By: Ralf frias/rad:06/05/2022 11:33:00 letter sent: Normal Exam Ultrasound BI-RADS: 1 Negative
== END ==
PROVIDERS: PCP Student in an Organized Health Care Education/Training Program; Referring Provider Student in an Organized Health Care Education/Training Program; Visit Provider Student in an Organized Health Care Education/Training Program
DX: R92.2 Inconclusive mammogram (principal); N64.4 Mastodynia
CPT/HCPCS: 76642; 77066; G0279

== ENCOUNTER → 2022-08-23 13:34 | Outpatient (CLI) | payer OTHER, SELFPAY ==
--- NOTE | 2022-08-23 13:36 | DI.RAD.S_ITS ---
PROCEDURE: XR LUMBAR SPINE 2-3V INDICATIONS: bilateral hip pain, chronic midline low back pain TECHNIQUE: Three views of the lumbar spine were acquired. COMPARISON: None. FINDINGS: Bones: Five [id number] vertebrae are present. There is mild dextroscoliosis and mild right lateral subluxation of L3 on L4. Asymmetric left-sided degenerative disc space loss at L2-3 and L3-4. Left lateral endplate spurs. Moderate diffuse disc space loss throughout the lumbar spine. Moderately severe L5-S1 disc space loss. No vertebral body compression fractures. No suspicious bony lesions. Soft tissues: Overlying bowel gas pattern is normal. No suspicious soft tissue calcifications. IMPRESSION: 1. Chronic appearing degenerative scoliosis and disc height loss. Dictated by: Colleen Ortega M.D. on 08/23/2022 at 16:10 Approved by: Colleen Ortega M.D. on 08/23/2022 at 16:12
--- NOTE | 2022-08-23 13:36 | DI.RAD.S_ITS ---
PROCEDURE: XR HIP W PEL IF DONE LALY MIN 4V INDICATIONS: bilateral hip pain, chronic midline low back pain TECHNIQUE: AP pelvis with lateral view(s) of the bilateral hip(s). COMPARISON: None. FINDINGS: Bones: No fracture or dislocation. There is mild degenerative joint space loss in both sacroiliac joints. No suspicious bone lesions. Soft tissues: Bowel gas pattern is normal. There are a subtle cartilaginous calcifications along the lateral aspects of both femoral heads. Small spurs seen inferiorly in both femoral heads. IMPRESSION: 1. 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 Dictated by: Colleen Ortega M.D. on 08/23/2022 at 16:05 Approved by: Colleen Ortega M.D. on 08/23/2022 at 16:10
== END ==
PROVIDERS: PCP Student in an Organized Health Care Education/Training Program; Referring Provider Student in an Organized Health Care Education/Training Program; Visit Provider Student in an Organized Health Care Education/Training Program
DX: M11.252 Other chondrocalcinosis, left hip (principal); M11.251 Other chondrocalcinosis, right hip; M25.551 Pain in right hip; M25.552 Pain in left hip; M54.41 Lumbago with sciatica, right side; M54.42 Lumbago with sciatica, left side; G89.29 Other chronic pain; M41.9 Scoliosis, unspecified
CPT/HCPCS: 72100; 73522